=== PATIENT | female | born 1990 | race Caucasian/White ===

== ENCOUNTER 2019-12-26 19:25 | Emergency (ER) | payer OTHER ==
[~2019-12-26] VITALS: Ht 157.5 cm; Wt 59.0 kg
[2019-12-26 19:30] VITALS: BP 135/74
--- NOTE | 2019-12-26 19:33 | NUR ---
TO LOBBY A/W BED AMBULATORY
--- NOTE | 2019-12-26 19:59 | NUR ---
TO ER BED 6
--- NOTE | 2019-12-26 20:01 | NUR ---
PT C/O HEAVY VAGINAL BLEEDING STARTING THIS MORNING. LMP 11/19. STATES SHE TESTED POSITIVE FOR . HX 4 MISCARRIAGES, THEN 2 KIDS. STATES THAT SPOTTING, CRAMPING AND GROIN/MUSCLE PAIN BENEATH THE LEFT LEG STARTED ON THURSDAY. STATES THAT STARTING THURSDAY IT FEELS LIKE THERE IS SOMETHING IN HER VAGINA SIMILAR TO THE WAY A TAMPON WOULD FEEL. STATES SHE'S BEEN NAUSEOUS WITHOUT VOMITING, BUT STATES THAT SHE FEELS IT MIGHT BE FROM NERVES. STATES SHE HAS LOWER BACK PAIN 2/10, AND CRAMPING 5/10 WHICH HAS BEEN CONSTANT SINCE THURSDAY. STATES SHE IS GOING THROUGH 1 PAD EVERY 1-2 HOURS; SOMETIMES THE FLOW IS HEAVIER AND THERE HAVE BEEN CLOTS AND TISSUE SUBSTANCE. DENIES TAKING ANYTHING FOR THE NAUSEA OR PAIN. PT SITTING UPRIGHT IN GURNEY, RESTING COMFORTABLY BUT LOOKS WORRIED. RR EVEN AND UNLABORED, DENIES CP OR ABD PAIN, NO CHANGES TO URINATION OR BOWEL HABITS. VSS.
--- NOTE | 2019-12-26 20:45 | NUR ---
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
[2019-12-26 21:36] VITALS: BP 121/62
[2019-12-26 21:37] LABS: BASOPHILS % (AUTO) 0.5 % (0.0-2.0); EOSINOPHILS % (AUTO) 0.5 % (0.0-4.0); HEMATOCRIT 36.1 % (36-48); HEMOGLOBIN 11.9 g/dL (12.0-16.0); LYMPHOCYTES # (AUTO) 2.8 K/uL (2.5-16.5); LYMPHOCYTES % (AUTO) 39.2 % (20.5-51.1); MEAN CORPUSCULAR HEMOGLOBIN 31 pg (27-31); MEAN CORPUSCULAR HGB CONC 33 g/dL (33-37); MEAN CORPUSCULAR VOLUME 95.1 fL (80-94); MONOCYTES # (AUTO) 0.6 K/uL (0.8-1.0); MONOCYTES % (AUTO) 7.9 % (1.7-9.3); NEUTROPHILS # (AUTO) 3.7 K/uL (1.8-7.7); NEUTROPHILS % (AUTO) 51.9 % (42.2-75.2); PLATELET COUNT (AUTO) 239 K/uL (140-450); RED CELL DISTRIBUTION WIDTH 11.7 % (11.6-13.7); WHITE BLOOD COUNT (AUTO) 7.1 K/uL (4.8-10.8)
--- NOTE | 2019-12-26 23:02 | NUR ---
Patient discharged with v/s stable. Written and verbal after care instructions given and explained. Patient verbalized understanding. Ambulatory with steady gait. All questions addressed prior to discharge. Advised to follow up with PMD.
[2019-12-26 23:45] LABS: APPEARANCE,URINE CLEAR (CLEAR)
[2019-12-26 23:46] LABS: BILIRUBIN,URINE NEGATIVE (NEGATIVE); BLOOD, URINE 4+ (NEGATIVE); COLOR,URINE YELLOW (YELLOW); LEUKOCYTE ESTERASE ,URINE NEGATIVE (NEGATIVE); NITRITE, URINE NEGATIVE (NEGATIVE); UGLUCOSE NEGATIVE (NEGATIVE)
[2019-12-26 23:47] LABS: RBC,URINE 11-20 (MOD) /HPF (0-5); WBC,URINE 0-5 /HPF (0-5)
== END 2019-12-26 23:00 | disposition home or self-care (01) ==
LOC: MED 19:25
DX: O20.8 Other hemorrhage in early pregnancy (principal); Z3A.01 Less than 8 weeks gestation of pregnancy
CPT/HCPCS: 36415; 76817; 81001; 84702; 85025; 86900; 86901; 87086; 99284; Q0092